=== PATIENT | female | born 1985 | race Caucasian/White ===

== ENCOUNTER → 2017-05-25 | Day surgery (SDC) | payer BC ==
[~2017-05-25] VITALS: Ht 157.5 cm; Wt 83.2 kg
[~2017-05-25] MED LIST: MOTRIN800 MG PO; PERCOCET 5-3251 EACH PO; PRENATAL 1+1)(P1 TAB PO; ZYRTEC10 MG PO
--- NOTE | ~2017-05-25 | OR ---
PATIENT'S NAME: [facility]CK [facility] AGE: 31 Y [address] ROOM: [place] [address] LOCATION: [facility] [place] ADMIT DATE: 05/25/2017 OR/Procedure Report DISCHARGE DATE: FAMILY PHYSICIAN: PHYSICIAN, NO ATTENDING PHYSICIAN: Ning Ernandez SURGEON: Ning Ernandez MD LAWN CARE SPECIALIST: DATE OF PROCEDURE: 05/25/2017 PREOPERATIVE DIAGNOSIS: Missed at 10 weeks. POSTOPERATIVE DIAGNOSIS: Missed at 10 weeks. PROCEDURE: Suction dilation and curettage. ESTIMATED BLOOD LOSS: 300 mL. ANESTHESIA: GETA. FINDINGS: Moderate amounts of products of conception. INDICATIONS: This patient is a 31-year-old, G2, P1-0-0-1 female, who presented to the office for routine OB visit at 12 weeks' gestation. Yesterday, there were no heart tones that could be identified. She had an ultrasound, which showed a missed AB at 10 weeks. We discussed medical, surgical, and expected management. The risks, benefits, and alternatives to the procedure were discussed with the patient. She understood the risks to be, but not to be limited to, bleeding, infection, damage to the bowel, bladder, and surrounding organs, and desired to proceed. DESCRIPTION OF PROCEDURE: The patient was taken to the operating room. General anesthesia was found to be adequate. She was prepped and draped in the dorsal lithotomy position and a time-out was performed. A weighted speculum was placed in the vagina. The anterior lip of the cervix was grasped with a fine-toothed tenaculum. The cervix was sequentially dilated with Hegar dilators. An 8 mm suction curette was introduced into the uterus followed by sharp curettage until good uterine cry was noted and the uterus was removed of all products of conception. The tenaculum was removed with hemostasis noted. Methergine was given once during the procedure 0.2 mg IM. All instruments were removed from the patient and hemostasis was noted. COMPLICATIONS: None. CONDITION OF THE PATIENT: Stable. PATIENT'S NAME: MARCK [facility] AGE: 31 Y [address] ROOM: [place] [address] LOCATION: [facility] [place] ADMIT DATE: 05/25/2017 OR/Procedure Report DISCHARGE DATE: FAMILY PHYSICIAN: KAMI ARIAS ATTENDING PHYSICIAN: Ning Ernandez MD NISHI SINGH/modl /[id number] d: [birth year]1752 t: 05/26/17 0834, OPERATIVE SUMMARY
[2017-05-25 06:34] LABS: BASOPHIL % 0.5 %; EOSINOPHIL # 0.3 K/uL (0.0-0.5); EOSINOPHIL % 4.2 %; HEMATOCRIT 40.6 % (33.0-46.0); HEMOGLOBIN 14.1 g/dL (11.0-15.0); IMMATURE GRANULOCYTE % 0.3 %; LYMPHOCYTE # 2.3 K/uL (0.8-4.0); LYMPHOCYTE % 31.8 %; MCH 29.1 pg (27.0-34.0); MCHC 34.7 gm/dL (32.0-36.5); MCV 83.9 fl (83.0-98.0); MONOCYTE # 0.5 K/uL (0.0-1.0); MPV 9.6 fl (9.4-12.4); NEUTROPHIL # (ANC) 4.1 K/uL (1.8-7.8); NEUTROPHIL % 56.2 %; NRBC % 0 /100WBC (0-0.00); PLATELET COUNT 302 K/uL (150-450); RDW-CV 12.5 % (11.9-14.6); WBC 7.3 K/uL (4.0-11.0)
[2017-05-25 06:38] LABS: RBC 4.84 M/uL (3.50-5.00)
== END | disposition disaster alternative care site (69) ==
LOC: GPOC 05-24 13:00 → GSDC 05:59
PROVIDERS: Obstetrics & Gynecology
PROC: 10A07ZZ Abortion of Products of Conception, Via Natural or Artificial Opening (ICD-10-PCS; principal; 2017-05-25)
DX: O02.1 Missed abortion (principal); J45.909 Unspecified asthma, uncomplicated; Z98.890 Other specified postprocedural states
CPT/HCPCS: J1100; J1885; J2001; J2210; J2250; J2405; J2590; J7120